=== PATIENT | male | born 1955 | race Caucasian/White ===

== ENCOUNTER → 2021-06-12 15:43 | Outpatient (CLI) | payer MEDICARE, MEDICAID, SELFPAY ==
--- NOTE | ~2021-06-12 | XR_ITS ---
EXAMINATION: XR hand LT 2V, XR hand RT 2V DATE: 06/12/2021 16:13 INDICATION: Bilateral hand pain. TECHNIQUE: 1. Posteroanterior and lateral views of the left hand were obtained. 2. Posteroanterior and lateral views of the right hand were obtained. COMPARISON: None. FINDINGS: 3 mm ulnar minus variance at both the left and right wrists. Alignment is otherwise normal at the kathleen ateral hands and wrists. No fractures. Polyarticular osteoarthritis, severe at the bilateral radial c apitate articulations and bilateral first carpometacarpal joints. Moderate osteoarthritis at the righ t second and third and left third metacarpophalangeal joints. Additional mild to moderate osteoarthri tis at the interphalangeal joints of both hands with distal predominance. Mild osteoarthritis of the bilateral triscaphe joints. Cystic change at the distal articular surface of the right ulna. A couple small thin linear metallic foreign bodies in the soft tissues palmar to the ulnar side of the carpus measuring 8 mm and 4 mm in length. IMPRESSION: 1. Moderate to severe polyarticular osteoarthritis at the bilateral hands and wrists. 2. A couple small thin wire-like foreign bodies in the soft tissues at the palmar aspect of the ulnar side of the left carpus. Reviewed, dictated and finalized at location A. [facility] [employer] IMPRESSION: 1. Moderate to severe polyarticular osteoarthritis at the bilateral hands and w rists. 2. A couple small thin wire-like foreign bodies in the soft tissues at the palm ar aspect of the ulnar side of the left carpus.
== END ==
PROVIDERS: PCP Nurse Practitioner Family; Visit Provider Nurse Practitioner Family
DX: M54.59 Other low back pain (principal); M19.041 Primary osteoarthritis, right hand; M19.042 Primary osteoarthritis, left hand; M19.031 Primary osteoarthritis, right wrist; M19.032 Primary osteoarthritis, left wrist
CPT/HCPCS: 73120